=== PATIENT | male | born 1970 | race Caucasian/White ===

== ENCOUNTER 2023-08-05 22:07 | Emergency (ER) | payer OTHER, SELFPAY ==
[2023-08-05 22:18] VITALS: BP 115/73; PULSE 66; RESP 18; TEMP 36.6; O2SAT 96; BMI 20.7
--- NOTE | 2023-08-05 22:23 | XRR_ITS ---
PROCEDURE INFORMATION: Exam: XR Left Wrist Exam date and time: 08/05/2023 11:03 PM Age: 52 years old Clinical indication: Injury or trauma; Fall; Patient HX: Lt wrist pain post foosh TECHNIQUE: Imaging protocol: Radiologic exam of the left wrist. Views: 3 or more views. COMPARISON: No relevant prior studies available. FINDINGS: Bones/joints: Normal. Soft tissues: Normal. XR/XR wrist LT min 3V* [id number] IMPRESSION: No acute findings.
--- NOTE | 2023-08-05 22:40 | ED_ITS ---
HPI - Extremity Problem General: Chief complaint: Extremity Injury, Upper Stated complaint: Left arm injury Time Seen by Provider: 08/05/23 22:38 History of Present Illness: 52-year-old male patient comes in today for complaints of left wrist injury. Patient was playing catch and he slipped and fell catching himself with a outstretched hand. Patient has pain and tenderness with some swelling to the distal radial aspect of the wrist and thumb. Review of Systems General: Reports: 10 or more systems reviewed and unremarkable except in HPI and below Physical Exam Const: COMMON NORMALS: alert HENMT: COMMON NORMALS: normocephalic HEAD & SCALP: normocephalic Neck/C-Spine: COMMON NORMALS: full ROM Resp: COMMON NORMALS: normal respiratory effort Cardio: COMMON NORMALS: regular rate RATE: regular rate Back/Pelvis: COMMON NORMALS: thoracic and lumbar spine normal to inspection Extremity: LEFT UPPER EXTREMITY: Yes wrist (Radial swelling. Decreased range of motion due to pain) Left wrist: Yes inspection, Yes palpation, Yes ROM and Yes neurovascular exam (Cap refill sensation intact) Neuro: SENSORIUM/ORIENTATION: Yes alert Skin: COMMON NORMALS: turgor normal GENERAL SKIN EXAM: turgor normal Course Vital Signs: Vital signs: Vital Signs Temperature 97.9 F 08/05/23 22:18 Pulse Rate 66 08/05/23 22:18 Respiratory Rate 18 08/05/23 22:18 Blood Pressure 115/73 08/05/23 22:18 Pulse Oximetry 96 08/05/23 22:18 Oxygen Delivery Me thod Room Air 08/05/23 22:18 MDM - Extremity (Nontraumatic) Medical Decision Making 52-year-old male patient comes in today for injury to the left wrist. On exam patient has some swelling and tenderness to the radial wrist area. Differential diagnosis includes but limited to fracture, sprain, contusion. X-ray noted no obvious fracture. Patient was placed in a elastic splint and recommended to follow-up in 1 week for repeat x-ray if pain persist. Otherwise follow-up with primary care as needed. XR interpretation done by ED provider, pending radiology final review Discharge Plan Discharge Patient Disposition: Home Clinical Impression: Sprain and strain of wrist Condition: Stable Discharge Orders: Discharge ED (Routine); Ordered 08/05/23 Ordered By: Mike J De La Cruz Discharge Diet: Usual diet Discharge Activity: Increase activity as tolerated Patient Instructions: Wrist Sprain (ED) Activity Restrictions/Additional Instructions: Home and rest. Activity as tolerated. Follow-up with primary care in 1 week for recheck. Return to ED for new concerns. Coding Level of Care Code ED Mail Delivery Supervisor for Cheryl Ventura
== END 2023-08-05 23:41 | disposition home or self-care (01) ==
PROVIDERS: Emergency Provider Nurse Practitioner Family
DX: S63.502A Unspecified sprain of left wrist, initial encounter (principal); S66.912A Strain of unspecified muscle, fascia and tendon at wrist and hand level, left hand, initial encounter; W01.0XXA Fall on same level from slipping, tripping and stumbling without subsequent striking against object, initial encounter
CPT/HCPCS: 73110; 99283